=== PATIENT | female | born 1975 | race African-American/Black ===

== ENCOUNTER 2016-12-08 10:43 | Emergency (ER) | payer MEDICAID ==
--- NOTE | 2016-12-08 11:06 | ER Document Report ---
HPI - HPI Pain Level: 4 Notes: Patient is a 41-year-old female who presents to the ED complaining of left foot pain status post twist injury yesterday. Patient states that the pain is to the top of the foot and will radiate proximally. She has not been using any [id number] meds for her symptoms. the pain is described as an ache and occasional sharp pain. Patient states that weightbearing and ambulation make the pain worse. No other concerns or complaints. No other significant past medical history aside from hypertension. Denies any headache, fever, head injury, neck pain, chest pain, palpitations, syncope, cough, shortness of breath , wheeze, dyspnea, abdominal pain, nausea/vomiting/diarrhea, dysuria, hematuria , back pain, or rash. - ROS Notes: REVIEW OF SYSTEMS: CONSTITUTIONAL : Denies fever, chills, or sweats. Denies recent illness. EENT: Denies eye, ear, throat, or mouth pain or symptoms. Denies nasal or sinus congestion or discharge. Denies throat, tongue, or mouth swelling or difficulty swallowing. CARDIOVASCULAR: Denies chest pain. Denies palpitations or racing or irregular heart beat. Denies ankle edema. RESPIRATORY: Denies cough, cold, or chest congestion. Denies shortness of breath, difficulty breathing, or wheezing. GASTROINTESTINAL: Denies abdominal pain or distention. Denies nausea, vomiting , or diarrhea. Denies blood in vomitus, stools, or per rectum. Denies black, tarry stools. Denies constipation. GENITOURINARY: Denies difficulty urinating, painful urination, burning, frequency, blood in urine, or discharge. MUSCULOSKELETAL: see hpi SKIN: Denies rash, lesions or sores. NEUROLOGICAL: Denies confusion or altered mental status. Denies passing out or loss of consciousness. Denies dizziness or lightheadedness. Denies headache. Denies weakness or paralysis or loss of use of either side. Denies problems with gait or speech. Denies sensory loss, numbness, or tingling. ALL OTHER SYSTEMS REVIEWED AND NEGATIVE. Dictation was performed using [employer] voice recognition software - REPRODUCTIVE Reproductive: DENIES: : - DERM Skin Color: Normal Past Medical History - Social History Smoking Status: Current Every Day Smoker Family History: Reviewed & Not Pertinent - Past Medical History Cardiac Medical History: Reports: Hx Hypertension Denies: Hx Coronary Artery Disease Pulmonary Medical History: Reports: Hx Asthma, Hx Bronchitis Neurological Medical History: Reports: Hx Migraine Endocrine Medical History: Reports: Hx Hypothyroidism Renal/ Medical History: Reports: Hx Kidney Stones, Hx Ovarian Cysts, Hx Pelvic Inflammatory Disease. Denies: Hx Peritoneal Dialysis GI Medical History: Reports: Hx Gastroesophageal Reflux Disease, Hx Ulcer Musculoskeltal Medical History: Reports Hx Musculoskeletal Trauma Psychiatric Medical History: Reports: Hx Depression Traumatic Medical History: Reports: Hx Fractures Past Surgical History: Reports: Hx Abdominal Surgery - esophageal flap?, Hx Gynecologic Surgery - ovarian cyst, Hx Orthopedic Surgery - cyst on left ankle - Immunizations Immunizations up to date: Yes Hx Diphtheria, Pertussis, Tetanus Vaccination: Yes Hx Pneumococcal Vaccination: 02/16/10 Vertical Provider Document - CONSTITUTIONAL Agree With Documented VS: Yes Notes: PHYSICAL EXAMINATION: GENERAL: Well-appearing, well-nourished and in no acute distress. LUNGS: Breath sounds clear to auscultation bilaterally and equal. No wheezes rales or rhonchi. HEART: Regular rate and rhythm without murmurs, rubs, gallops. Musculoskeletal: Lt foot/ankle: FROM to passive/active. Strength 5+/5. + tenderness near the ATFL. + mild swelling to that area as well. No malleolar tenderness. N/V intact distal. Extremities: No cyanosis, clubbing, or edema b/l. Peripheral pulses 2+. Capillary refill less than 3 seconds. PSYCH: Normal mood, normal affect. SKIN: Warm, Dry, normal turgor, no rashes or lesions noted. - INFECTION CONTROL TRAVEL OUTSIDE OF THE [place] IN LAST 30 DAYS: No - RESPIRATORY O2 Sat by Pulse Oximetry: 97 Course - Re-evaluation Re-evalutation: 12/08/16 11:35 Patient is an afebrile, well-hydrated, 41-year-old female who presents to the ED with left foot pain, suspect sprain/strain. Vitals are stable. PE otherwise unremarkable for any neurovascular compromise. X-ray unremarkable for any acute fracture or dislocation. Patient to monitor symptoms closely and seek medical attention with any acute changes. An Raj wrap was applied today and crutches provided. Conservative measures for symptoms. Recheck with your PCM in 2-3 days. Consider consult with orthopedics and physical therapy for ongoing/worsening symptoms. Return to the ED with any worsening/concerning symptoms otherwise as reviewed in discharge. Patient is in agreement. - Vital Signs Vital signs: Temp Pulse Resp BP Pulse Ox 98.9 F 89 16 168/99 H 97 12/08/16 10:47 12/08/16 10:47 12/08/16 10:47 12/08/16 10:47 12/08/16 10:47 Discharge - Discharge Clinical Impression: Right foot pain Condition: Stable Disposition: HOME, SELF-CARE Instructions: Raj Wrap ([facility]), Exercises for the Foot Muscles ([facility]), Ice & Elevation ([facility]), Warm Packs ([facility]) Additional Instructions: Rest, Ice, Compression, Elevation Use raj wrap as directed Tylenol/ibuprofen as needed Light stretches daily Strength exercises as able Moist heat and massage may help F/u with your PCP in 2-3 days for a recheck Consider consult(s) with Orthopedics/physical therapy for ongoing/worsening symptoms Return to the ED with any worsening symptoms and/or development of fever, headache, chest pain, palpitations, syncope, shortness of breath, trouble breathing, abdominal pain, n/v/d, muscle weakness/paralysis, numbness/tingling, swelling, redness, or other worsening symptoms that are concerning to you. Prescriptions: Naproxen 500 mg PO BID PRN #30 tablet PRN Reason: Forms: Elevated Blood Pressure, Smoking Cessation Education Referrals: [facility] [Provider Group] - Follow up as needed
--- NOTE | 2016-12-08 11:28 | RADIOLOGY REPORT (SQ) ---
EXAM DESCRIPTION: FOOT LEFT COMPLETE COMPLETED DATE/TIME: 12/08/2016 11:14 am REASON FOR STUDY: left foot pain near ATFL COMPARISON: None. NUMBER OF VIEWS: Three views. TECHNIQUE: AP, lateral and oblique radiographic images acquired of the left foot. LIMITATIONS: None. FINDINGS: MINERALIZATION: Normal. BONES: No acute fracture or dislocation. No worrisome bone lesions. JOINTS: No effusions. SOFT TISSUES: No soft tissue swelling. No foreign body. OTHER: No other significant finding. IMPRESSION: NEGATIVE STUDY OF THE LEFT FOOT. NO RADIOGRAPHIC EVIDENCE OF ACUTE INJURY. TECHNICAL DOCUMENTATION: JOB ID: [id number] [employer]- All Rights Reserved
[2016-12-08 11:50] VITALS: BP 137/96
== END 2016-12-08 11:57 | disposition home or self-care (01) ==
LOC: ER 10:43
DX: M79.672 Pain in left foot (principal); X50.1XXA Overexertion from prolonged static or awkward postures, initial encounter; M79.671 Pain in right foot; J45.909 Unspecified asthma, uncomplicated; I10 Essential (primary) hypertension; F17.200 Nicotine dependence, unspecified, uncomplicated
CPT/HCPCS: 99283

== ENCOUNTER → 2017-03-09 | Outpatient (CLI) | payer MEDICAID | LOC: LAB 12:14 | PROVIDERS: ATTEND Nurse Practitioner Acute Care | DX: M54.5 Low back pain (principal); R30.0 Dysuria | CPT/HCPCS: 87086; 87210 ==

== ENCOUNTER → 2017-08-08 | Outpatient (CLI) | payer MEDICAID ==
--- NOTE | 2017-08-08 12:09 | RADIOLOGY REPORT (SQ) ---
EXAM DESCRIPTION: C SP 3 VWS OR LESS COMPLETED DATE/TIME: 08/08/2017 11:42 am REASON FOR STUDY: NECK PAIN ON LEFT SIDE M54.2 CERVICALGIA COMPARISON: Two view cervical spine 08/13/2012 NUMBER OF VIEWS: Two views TECHNIQUE: AP, lateral radiographic images acquired of the cervical spine. LIMITATIONS: None. FINDINGS: MINERALIZATION: Normal. ALIGNMENT: Anatomic. VERTEBRAE: Vertebral bodies of normal height. DISCS: No significant disc space narrowing. No large osteophytes. HARDWARE: None in the spine. SOFT TISSUES: No masses or calcifications. Lung apices clear. OTHER: No other significant finding. IMPRESSION: NO SIGNIFICANT RADIOGRAPHIC FINDING IN THE CERVICAL SPINE. TECHNICAL DOCUMENTATION: JOB ID: [id number] [employer]- All Rights Reserved Reading location - IP/workstation name: [email or web address]
== END ==
LOC: OD 11:27
PROVIDERS: ATTEND Family Medicine
DX: M54.2 Cervicalgia (principal)
CPT/HCPCS: 72040

== ENCOUNTER → 2017-09-06 | Outpatient (CLI) | payer MEDICAID ==
[2017-09-06 11:50] LABS: BACTERIA (WET MOUNT) 3+ BACTERIA SEEN; EPITHELIALS (WET MOUNT) 3+ EPITHELIALS SEEN; RBCS (WET MOUNT) FEW RBCS SEEN; T.VAGINALIS (WET MOUNT) NO TRICHOMONAS SEEN; WBCS (WET MOUNT) 2+ WBCS SEEN; YEAST (WET MOUNT) NO YEAST SEEN
== END ==
LOC: LAB 11:41
PROVIDERS: ATTEND Nurse Practitioner Acute Care
DX: N89.8 Other specified noninflammatory disorders of vagina (principal)
CPT/HCPCS: 87210

== ENCOUNTER → 2017-10-24 | Outpatient (CLI) | payer MEDICAID ==
--- NOTE | 2017-10-24 17:06 | WOMENS IMAGING REPORT ---
EXAM DESCRIPTION: BILAT SCREENING MAMMO W/CAD COMPLETED DATE/TIME: 10/24/2017 11:49 am REASON FOR STUDY: SCREENING MAMMO Z12.31 ENCNTR SCREEN MAMMOGRAM FOR MALIGNANT NEOPLASM OF ABBE COMPARISON: 2015 TECHNIQUE: Standard craniocaudal and mediolateral oblique views of each breast recorded using digita l acquisition. LIMITATIONS: None. FINDINGS: No masses, calcifications or architectural distortion. No areas of suspicion. Read with the assistance of CAD. .[facility] - R2 C[employer]ova Version 1.3 .[facility] - R2 Cenova Version 1.3 .[facility] - R2 Cenova Version 2.4 .[facility] - R2 Cenova Version 2.4 .[facility] - R2 [employer] Helper Version 9.2 IMPRESSION: NORMAL MAMMOGRAM. BIRADS 1. BREAST DENSITY: b. There are scattered areas of fibroglandular density. BIRAD: 1 NEGATIVE RECOMMENDATION: ROUTINE SCREENING COMMENT: The patient has been notified of the results by letter per SA requirements. Additional no tification policies are in place for contacting patient with suspicious or incomplete findings. Quality ID #225: The [employer] recommends an annual screening mammogram for women aged 40 years or over. This facility utilizes a reminder system to ensure that all patients receive reminder letters, and/or direct phone calls for appointments. This includes reminders for routine scr eening mammograms, diagnostic mammograms, or other Breast Imaging Interventions when appropriate. Th is patient will be placed in the appropriate reminder system. The [employer] (ACR) has developed recommendations for screening MRI of the breast s in certain patient populations, to be used in conjunction with mammography. Breast MRI surveillanc e may be appropriate for women with more than 20% lifetime risk of developing breast cancer as deter mined by genetic testing, significant family history of the disease, or history of mantle radiation f or Hodgkins Disease. ACR Practice Guidelines 2008. TECHNICAL DOCUMENTATION: FINDING NUMBER: (1) ASSESSMENT: (1) JOB ID: [id number] [employer]- All Rights Reserved Reading location - IP/workstation name: [email or web address]
== END ==
LOC: WI 11:07
PROVIDERS: ATTEND Family Medicine
DX: Z12.31 Encounter for screening mammogram for malignant neoplasm of breast (principal)
CPT/HCPCS: 77067

== ENCOUNTER → 2017-11-16 | Outpatient (CLI) | payer MEDICAID ==
[2017-11-16 14:34] LABS: T.VAGINALIS (WET MOUNT) NO TRICHOMONAS SEEN
[2017-11-16 14:35] LABS: BACTERIA (WET MOUNT) 4+ BACTERIA SEEN; EPITHELIALS (WET MOUNT) 3+ EPITHELIALS SEEN; WBCS (WET MOUNT) RARE WBCS SEEN; YEAST (WET MOUNT) NO YEAST SEEN
[2017-11-16 16:12] LABS: CHLAM PCR NOT DETECTED (NOT DETECT); GON PCR NOT DETECTED (NOT DETECT)
== END ==
LOC: LAB 14:10
PROVIDERS: ATTEND Nurse Practitioner Acute Care
DX: N89.8 Other specified noninflammatory disorders of vagina (principal); R10.9 Unspecified abdominal pain
CPT/HCPCS: 87086; 87210; 87491; 87591

== ENCOUNTER → 2018-01-17 | Outpatient (CLI) | payer MEDICAID ==
[2018-01-17 14:36] LABS: BACTERIA (WET MOUNT) 4+ BACTERIA SEEN; RBCS (WET MOUNT) FEW RBCS SEEN; T.VAGINALIS (WET MOUNT) NO TRICHOMONAS SEEN; WBCS (WET MOUNT) 3+ WBCS SEEN; YEAST (WET MOUNT) NO YEAST SEEN
[2018-01-17 14:37] LABS: EPITHELIALS (WET MOUNT) 4+ EPITHELIALS SEEN
[2018-01-17 15:50] LABS: CHLAM PCR NOT DETECTED (NOT DETECT); GON PCR NOT DETECTED (NOT DETECT)
== END ==
LOC: LAB 14:11
PROVIDERS: ATTEND Nurse Practitioner Acute Care
DX: N89.8 Other specified noninflammatory disorders of vagina (principal); R30.0 Dysuria
CPT/HCPCS: 87210; 87491; 87591

== ENCOUNTER → 2018-08-31 | Outpatient (CLI) | payer MEDICAID ==
[2018-08-31 14:20] LABS: BACTERIA (WET MOUNT) 4+ BACTERIA SEEN; EPITHELIALS (WET MOUNT) 4+ EPITHELIALS SEEN; RBCS (WET MOUNT) FEW RBCS SEEN; T.VAGINALIS (WET MOUNT) NO TRICHOMONAS SEEN; WBCS (WET MOUNT) 2+ WBCS SEEN; YEAST (WET MOUNT) NO YEAST SEEN
--- NOTE | 2018-08-31 14:27 | RADIOLOGY REPORT (SQ) ---
EXAM DESCRIPTION: HIP LEFT AP/LATERAL COMPLETED DATE/TIME: 08/31/2018 2:[address] abdomen and pelvis 10/27/2015 REASON FOR STUDY: LEFT HIP PAIN; CODE:01231, M25.552 N76.0 ACUTE VAGINITIS R30.0 DYSURIA R82.71 B ACTERIURIA COMPARISON: None. NUMBER OF VIEWS: Two views. TECHNIQUE: AP pelvis and additional frog-leg view of the left hip. LIMITATIONS: None. FINDINGS: MINERALIZATION: Normal. LEFT HIP: No fracture or dislocation. No worrisome bone lesions. RIGHT HIP: No fracture or dislocation. No worrisome bone lesions. PUBIS AND ISCHIUM: No fracture. PELVIS: No fracture. SACRUM: No fracture or dislocation. No worrisome bone lesions. LOWER LUMBAR SPINE: Bilateral lower lumbar facet arthropathy at L5-S1 SOFT TISSUES: No findings. OTHER: No other significant finding. IMPRESSION: NEGATIVE STUDY OF THE LEFT HIP AND PELVIS. NO RADIOGRAPHIC EVIDENCE OF ACUTE INJURY. TECHNICAL DOCUMENTATION: JOB ID: [id number] [employer]- All Rights Reserved Reading location - IP/workstation name: [email or web address]
== END ==
LOC: LAB 13:34
PROVIDERS: ATTEND Nurse Practitioner Family
DX: N76.0 Acute vaginitis (principal); R30.0 Dysuria; R82.71 Bacteriuria; M25.552 Pain in left hip
CPT/HCPCS: 87086; 87088; 87186; 87210

== ENCOUNTER → 2018-10-02 | Outpatient (CLI) | payer MEDICAID ==
[2018-10-02 15:03] LABS: BACTERIA (WET MOUNT) 4+ BACTERIA SEEN; EPITHELIALS (WET MOUNT) 4+ EPITHELIALS SEEN; RBCS (WET MOUNT) NO RBCS SEEN; T.VAGINALIS (WET MOUNT) NO TRICHOMONAS SEEN; WBCS (WET MOUNT) 2+ WBCS SEEN; YEAST (WET MOUNT) NO YEAST SEEN
== END ==
LOC: LAB 14:58
PROVIDERS: ATTEND Nurse Practitioner Acute Care
DX: N89.8 Other specified noninflammatory disorders of vagina (principal); R30.0 Dysuria
CPT/HCPCS: 87086; 87210

== ENCOUNTER → 2019-01-02 | Outpatient (CLI) | payer MEDICAID ==
--- NOTE | 2019-01-02 09:16 | WOMENS IMAGING REPORT ---
EXAM DESCRIPTION: BILAT SCREENING MAMMO W/CAD COMPLETED DATE/TIME: 01/02/2019 8:08 am REASON FOR STUDY: ROUTINE BILATERAL SCREENING;Z12.31 Z12.39 ENCOUNTER FOR OTH SCREENING FOR MALIGNA NT NEOPLASM OF COMPARISON: 10/24/2017 and 03/25/2015. EXAM PARAMETERS: Standard craniocaudal and mediolateral oblique views of each breast recorded using digital acquisition. Read with the assistance of CAD. .[facility] - [employer] Scaffolding Helper Version 9.2 LIMITATIONS: None. FINDINGS: No suspicious masses, suspicious calcifications or architectural distortion. No areas of c oncern. IMPRESSION: Negative MAMMOGRAM. BIRADS 1 BREAST DENSITY: c. The breasts are heterogeneously dense, which may obscure small masses. BIRAD: ASSESSMENT: 1 NEGATIVE RECOMMENDATION: ROUTINE SCREENING COMMENT: The patient has been notified of the results by letter per MQSA requirements. Additional no tification policies are in place for contacting patient with suspicious or incomplete findings. Quality ID #225: The [employer] recommends an annual screening mammogram for women aged 40 years or over. This facility utilizes a reminder system to ensure that all patients receive reminder letters, and/or direct phone calls for appointments. This includes reminders for routine scr eening mammograms, diagnostic mammograms, or other Breast Imaging Interventions when appropriate. Th is patient will be placed in the appropriate reminder system. TECHNICAL DOCUMENTATION: FINDING NUMBER: (1) ASSESSMENT: (1) JOB ID: [id number] [employer]- All Rights Reserved Reading location - IP/workstation name: [email or web address]
== END ==
LOC: WI 07:48
PROVIDERS: ATTEND Nurse Practitioner Family
DX: Z12.31 Encounter for screening mammogram for malignant neoplasm of breast (principal)
CPT/HCPCS: 77067

== ENCOUNTER 2019-02-27 11:29 | Day surgery (SDC) | payer MEDICAID ==
[2019-02-27] MEDS ORDERED: PROPOFOL INJ 200 MG/20 ML VIAL IV ONE (12:04)
[2019-02-27] MEDS ORDERED: LIDOCAINE 2% INJ-PF (20 MG/ML) 10 ML AMPUL ONE (12:04)
[2019-02-27] MEDS ORDERED: ONDANSETRON HCL INJ/PF 4 MG/2 ML SDV IV PRN (12:54)
[2019-02-27] MEDS ORDERED: MEPERIDINE HCL/PF INJ 25 MG/1 ML DISP.SYRIN IV PRN (12:54)
[2019-02-27] MEDS ORDERED: PROMETHAZINE HCL INJ 25 MG/1 ML VIAL IV PRN ×2 (12:54)
[2019-02-27] MEDS ORDERED: DIPHENHYDRAMINE HCL 50 MG/ML VIAL IV PRN (12:54)
[2019-02-27 13:11] LABS: POTASSIUM 3.8 mmol/L (3.6-5.0)
--- NOTE | 2019-02-27 13:39 | Operative Report ---
Operative Report DATE OF SURGERY: 02/27/19 Operative Report: The risks, benefits and alternatives of the procedure including the risks of bleeding, perforation requiring surgery have been explained to the patient in detail and informed consent has been obtained. Patient is placed in a left, lateral decubital position. Timeout was called. Propofol medication is administered. Rectal examination is done which did not reveal any masses, tears or fissures. Therapist with scope was inserted through the patient's rectum. Scope was then carefully advanced all the way to the cecum. The cecum was identified by the usual anatomical landmarks including the ileocecal valve as well as the appendiceal office. Photodocumentation is obtained. Scope was then sequentially pulled back via the various segments of the colon including the ascending colon, hepatic flexure, transverse colon, splenic flexure, descending colon finding to the rectosigmoid portions of the colon. Retroflexion maneuver is performed. PREOPERATIVE DIAGNOSIS: Change in bowel habits POSTOPERATIVE DIAGNOSIS: Right side inflammation status post biopsy OPERATION: Colonoscopy with biopsy SURGEON: LALO JOHN ANESTHESIA: LMAC TISSUE REMOVED OR ALTERED: As noted. COMPLICATIONS: None. ESTIMATED BLOOD LOSS: None. INTRAOPERATIVE FINDINGS: As noted above. PROCEDURE: Patient tolerated the procedure well. No immediate postprocedure complications are noted. Patient is discharged in good condition. Discharge date 02/27/2019. Discharge diet: Regular. Discharge activity: Regular. 2 to 3-week follow-up to discuss findings. Patient is instructed to call the office or proceed to the emergency room should there be any further problems or questions. Wait on the pathology.
[2019-02-27 15:07] VITALS: BP 121/76
== END 2019-02-27 14:40 | disposition home or self-care (01) ==
LOC: OROUT 11:29
PROVIDERS: ATTEND Internal Medicine Gastroenterology
DX: K52.9 Noninfective gastroenteritis and colitis, unspecified (principal); I10 Essential (primary) hypertension; K21.9 Gastro-esophageal reflux disease without esophagitis; E11.9 Type 2 diabetes mellitus without complications; J45.909 Unspecified asthma, uncomplicated; F17.210 Nicotine dependence, cigarettes, uncomplicated; Z88.8 Allergy status to other drugs, medicaments and biological substances
CPT/HCPCS: 45380; 36415; 82962; 82947; 84132; 88305 ×2; 00811; J2704; J3490; 811

== ENCOUNTER 2019-09-03 13:57 | Emergency (ER) | payer MEDICAID ==
--- NOTE | 2019-09-03 14:32 | ER Document Report ---
ED Medical Screen (RME) - General Stated Complaint: CHEST PAIN Time Seen by Provider: 09/03/19 14:25 Primary Care Provider: STEPHANI TURNER DO [Primary Care Provider] - Follow up as needed Mode of Arrival: Wheelchair Information source: Patient Notes: HPI; 44-year-old female with no previous medical problems presents emergency room complaining of sudden onset of chest pain that she states started when she was getting dressed. Radiates to her back. Denies any nausea, vomiting, no diaphoresis. Describes it as throbbing sensation midsternal. States she took 1 baby aspirin prior to arrival. No recent travel. No COVID-19 exposure. PE: Alert and oriented x3. Moderate distress noted. Lungs: Clear to auscultation without rales rhonchi wheezes. Heart: Regular rate rhythm without murmurs rubs or gallops. I have greeted and performed a rapid initial assessment of this patient. A comprehensive ED assessment and evaluation of the patient, analysis of test results and completion of the medical decision making process will be conducted by additional ED providers. I have specifically instructed the patient or family members with the patient to immediately return to any nursing staff should anything change in the patient's condition or with their chief complaint. TRAVEL OUTSIDE OF THE [place] IN LAST 30 DAYS: No - Related Data Allergies/Adverse Reactions: metoclopramide HCl [From Reglan] Adverse Reaction (Severe, Verified 09/03/19 14:25) Abnormal behavior Past Medical History - Past Medical History Cardiac Medical History: Reports: Hx Hypertension Denies: Hx Coronary Artery Disease, Hx Heart Attack Pulmonary Medical History: Reports: Hx Asthma, Hx Bronchitis Denies: Hx COPD, Hx Pneumonia Neurological Medical History: Reports: Hx Migraine. Denies: Hx Cerebrovascular Accident, Hx Seizures Endocrine Medical History: Reports: Hx Hypothyroidism Renal/ Medical History: Reports: Hx Kidney Stones, Hx Ovarian Cysts, Hx Pelvic Inflammatory Disease. Denies: Hx Peritoneal Dialysis GI Medical History: Reports: Hx Gastroesophageal Reflux Disease, Hx Ulcer Musculoskeltal Medical History: Denies Hx Arthritis, Reports Hx Musculoskeletal Trauma Psychiatric Medical History: Reports: Hx Depression Traumatic Medical History: Reports: Hx Fractures Past Surgical History: Reports: Hx Abdominal Surgery - esophageal flap?, Hx Gynecologic Surgery - ovarian cyst, Hx Orthopedic Surgery - cyst on left ankle - Immunizations Immunizations up to date: Yes Hx Diphtheria, Pertussis, Tetanus Vaccination: Yes Doctor's Discharge - Discharge Referrals: STEPHANI TURNER DO [Primary Care Provider] - Follow up as needed
[2019-09-03 14:58] LABS: ABSOLUTE BASOPHILS # (AUTO) 0.1 10^3/uL (0.0-0.2); ABSOLUTE EOSINOPHILS # (AUTO) 0.1 10^3/uL (0.0-0.6); ABSOLUTE LYMPHOCYTES (AUTO) 1.6 10^3/uL (0.5-4.7); ABSOLUTE MONOCYTES (AUTO) 0.5 10^3/uL (0.1-1.4); ABSOLUTE NEUT (AUTO) 4.4 10^3/uL (1.7-8.2); BASOPHILS % (AUTO) 1.1 % (0-2); EOSINOPHILS % (AUTO) 0.8 % (0-6); HEMATOCRIT 38.4 % (36.0-47.0); HEMOGLOBIN 13.3 g/dL (12.0-15.5); LYMPHOCYTES % (AUTO) 24.2 % (13-45); MEAN CORPUSCULAR HEMOGLOBIN 32.6 pg (27.0-33.4); MEAN CORPUSCULAR HGB CONC 34.6 g/dL (32.0-36.0); MEAN CORPUSCULAR VOLUME 94 fl (80-97); MONOCYTES % (AUTO) 7.4 % (3-13); PLATELET COUNT 308 10^3/uL (150-450); RED BLOOD COUNT 4.07 10^6/uL (3.72-5.28); RED CELL DISTRIBUTION WIDTH 12.5 % (11.5-14.0); SEGMENTED NEUTROPHILS % (AUTO) 66.5 % (42-78); TOTAL CELLS COUNTED % (AUTO) 100 %; WHITE BLOOD COUNT 6.7 10^3/uL (4.0-10.5)
[2019-09-03 15:11] LABS: APPEARANCE,URINE CLEAR; BILIRUBIN,URINE NEGATIVE (NEGATIVE); COLOR,URINE STRAW; GLUCOSE, URINE NEGATIVE (NEGATIVE); KETONES,URINE NEGATIVE (NEGATIVE); LEUKOCYTE ESTERASE,URINE NEGATIVE (NEGATIVE); NITRITE,URINE NEGATIVE (NEGATIVE); PROTEIN,URINE NEGATIVE (NEGATIVE); URINE SPECIFIC GRAVITY 1.011; UROBILINOGEN,URINE NEGATIVE mg/dL (<2.0)
[2019-09-03 15:14] LABS: ALBUMIN 4.7 g/dL (3.5-5.0); ALKALINE PHOSPHATASE 54 U/L (38-126); ANION GAP 8 (5-19); ASPARTATE AMINO TRANSFERASE 28 U/L (14-36); BILIRUBIN,TOTAL 0.6 mg/dL (0.2-1.3); BLOOD UREA NITROGEN 11 mg/dL (7-20); CALCIUM 9.9 mg/dL (8.4-10.2); CARBON DIOXIDE 25 mmol/L (22-30); CHLORIDE 103 mmol/L (98-107); CREATINE KINASE 154 U/L (30-135); GLUCOSE 122 mg/dL (75-110); POTASSIUM 4.1 mmol/L (3.6-5.0)
[2019-09-03 15:34] LABS: CREATINE KINASE MB 1.15 ng/mL (<4.55)
[2019-09-03 15:35] LABS: TROPONIN I < 0.012 ng/mL
--- NOTE | 2019-09-03 15:43 | RADIOLOGY REPORT (SQ) ---
EXAM DESCRIPTION: CHEST 2 VIEWS IMAGES COMPLETED DATE/TIME: 09/03/2019 2:53 pm REASON FOR STUDY: chest pain COMPARISON: AP chest 09/26/2011 EXAM PARAMETERS: NUMBER OF VIEWS: two views TECHNIQUE: Digital Frontal and Lateral radiographic views of the chest acquired. RADIATION DOSE: NA LIMITATIONS: none FINDINGS: LUNGS AND PLEURA: No opacities, masses or pneumothorax. No pleural effusion. MEDIASTINUM AND HILAR STRUCTURES: No masses or contour abnormalities. HEART AND VASCULAR STRUCTURES: Heart normal size. No evidence for failure. BONES: No acute findings. HARDWARE: None in the chest. OTHER: No other significant finding. IMPRESSION: NO ACUTE RADIOGRAPHIC FINDING IN THE CHEST. TECHNICAL DOCUMENTATION: JOB ID: [id number] [employer]- All Rights Reserved Reading location - IP/workstation name: [email or web address]
[2019-09-03] MEDS ORDERED: HYDROCODONE/ACETAMINOPHEN 5-325 MG TABLET PO ONE (16:13)
[2019-09-03] MEDS ORDERED: LIDOCAINE 2% VISCOUS SOLN 15 ML UDCUP PO ONE (18:25)
[2019-09-03] MEDS ORDERED: MAG HYDROX/AL HYDROX/SIMETH SUSP 30 ML UDCUP PO ONE (18:25)
--- NOTE | 2019-09-03 18:35 | EKG REPORT ---
SEVERITY:- ABNORMAL ECG - SINUS RHYTHM LEFT ATRIAL ABNORMALITY BORDERLINE T WAVE ABNORMALITIES : Confirmed by: Marshall Hannah MD 03-Sep-2019 18:34:28
--- NOTE | 2019-09-03 18:52 | ER Document Report ---
ED General - General Chief Complaint: Chest Pain Stated Complaint: CHEST PAIN Time Seen by Provider: 09/03/19 14:25 Primary Care Provider: STEPHANI TURNER DO [NO LOCAL MD] - Follow up as needed Mode of Arrival: Wheelchair Notes: 44-year-old female presents emergency department complaining of a sharp stabbing chest pain that radiates to her back that started when she bent over to put on her close, states when she stood up it was still there so she took an 81 mg aspirin and it did not help. States it is also located in her epigastrium. Patient states that it does wax and wane but has not gone away and stayed away completely. States that it hurts worse with a deep breath. Denies any nausea, vomiting or diarrhea. Denies any radiation of the pain to her arms or her neck, only to her back. Admits to history of hypertension, hyperlipidemia and diabetes. Mother had her first heart attack in her 50s and has since . TRAVEL OUTSIDE OF THE [place] IN LAST 30 DAYS: No - Related Data Allergies/Adverse Reactions: metoclopramide HCl [From Reglan] Adverse Reaction (Severe, Verified 09/03/19 18:32) Abnormal behavior Past Medical History - General Information source: Patient - Social History Smoking Status: Current Some Day Smoker Chew tobacco use (# tins/day): No Frequency of alcohol use: Rare Drug Abuse: Marijuana Family History: CAD - Mother with first heart attack around 53 or 54, in her 50s., Other - Father left when she was 1, medical history unknown. Patient has homicidal ideation: No - Past Medical History Cardiac Medical History: Reports: Hx Hypertension Denies: Hx Coronary Artery Disease, Hx Heart Attack Pulmonary Medical History: Reports: Hx Asthma, Hx Bronchitis Denies: Hx COPD, Hx Pneumonia Neurological Medical History: Reports: Hx Migraine. Denies: Hx Cerebrovascular Accident, Hx Seizures Endocrine Medical History: Reports: Hx Hypothyroidism Renal/ Medical History: Reports: Hx Kidney Stones, Hx Ovarian Cysts, Hx Pelvic Inflammatory Disease. Denies: Hx Peritoneal Dialysis GI Medical History: Reports: Hx Gastroesophageal Reflux Disease, Hx Ulcer Musculoskeletal Medical History: Denies Hx Arthritis, Reports Hx Musculoskeletal Trauma Psychiatric Medical History: Reports: Hx Depression Traumatic Medical History: Reports: Hx Fractures Past Surgical History: Reports: Hx Abdominal Surgery - esophageal flap?, Hx Gynecologic Surgery - ovarian cyst, Hx Orthopedic Surgery - cyst on left ankle - Immunizations Immunizations up to date: Yes Hx Diphtheria, Pertussis, Tetanus Vaccination: Yes Hx Pneumococcal Vaccination: 02/16/10 Review of Systems - Review of Systems Constitutional: No symptoms reported Cardiovascular: See HPI, Chest pain Respiratory: See HPI, Hurts to breathe Gastrointestinal: No symptoms reported -: Yes All other systems reviewed and negative Physical Exam - Vital signs Vitals: Temp Pulse Resp BP Pulse Ox 99.1 F 115 H 22 H 122/77 97 09/03/19 14:34 09/03/19 14:34 09/03/19 14:34 09/03/19 14:34 09/03/19 14:34 Interpretation: Tachycardic - Notes Notes: GENERAL: Alert, interacts well. No acute distress. HEAD: Normocephalic, atraumatic EYES: Pupils equal, round and reactive to light, extraocular movements intact. ENT: Oral mucosa moist, tongue midline. NECK: Full range of motion, supple, trachea midline. LUNGS: Clear to auscultation bilaterally, no wheezes, rales or rhonchi, no respiratory distress. HEART: Regular rate and rhythm, no murmurs, gallops, rubs. Tachycardia resolved by the time I examined her, heart rate was actually in the 60s. ABDOMEN: Soft, nontender, nondistended, bowel sounds present in all 4 quadrants. EXTREMITIES: Moves all 4 extremities spontaneously, no edema, radial and dorsalis pedis pulses 2/4 bilaterally. No cyanosis. NEUROLOGICAL: Alert and oriented x3, normal speech, biceps and patellar DTRs 2+ bilaterally. PSYCH: Normal mood, normal affect. SKIN: Warm, Dry, normal turgor, no rashes or lesions noted. Course - Re-evaluation Re-evalutation: 09/03/19 23:19 CBC unremarkable, CMP grossly unremarkable, lactic acid is normal, LFTs are n ormal, lipase is normal, test is negative, troponin is negative x2, urinalysis shows small blood but only 2 RBCs. Chest X-Ray 09/03/19 14:29 IMPRESSION: NO ACUTE RADIOGRAPHIC FINDING IN THE CHEST. Chest/Abdomen CTA 09/03/19 18:43 IMPRESSION: 1. No evidence for aortic dissection. No evidence for aortic aneurysm. 2. Incomplete opacification of the pulmonary arteries with IV contrast which limits the examination. 3. 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 Correlation with mesenteric Doppler ultrasound suggested. 4. Right renal cyst. Abdomen Ultrasound 09/03/19 20:13 IMPRESSION: Mild elevation of the superior mesenteric artery vessels however there is no significant change in the velocities before and after 2 ounces of Pedialyte. No significant change in the velocity of the celiac axis which is not significantly elevated. Overall there is no evidence of significant mesenteric vessel stenosis. copyright 2010 [employer]- All Rights Reserved Chest x-ray does not show pneumonia or pneumothorax to explain pleuritic chest pain, given the fact that her pain is sharp and stabbing and radiates to her back and she does have a history of hypertension, hyperlipidemia and diabetes I did order a CTA of the chest to look for dissection, this was negative but it did comment on narrowing of the proximal celiac artery, ultrasound was suggested and this was completed, there is no evidence of significant mesenteric vessel stenosis. This combined with a normal lactic acid makes me doubt that she has mesenteric ischemia. After this work-up was complete, patient now discloses that she had similar symptoms intermittently years ago and was discovered to have a hiatal hernia on EGD and was taken to surgery to fix it. Patient is not familiar with the term Angela fundoplication. Discussed with patient that she will need to follow-up with GI as an outpatient, they may want to perform an EGD, in the meantime I would suggest starting a PPI and Carafate, following a bland diet, eating small meals and she will be discharged home. - Vital Signs Vital signs: Temp Pulse Resp BP Pulse Ox 99 F 115 H 24 H 137/97 H 100 09/03/19 22:51 09/03/19 14:34 09/03/19 22:01 09/03/19 22:01 09/03/19 22:01 - Laboratory Result Diagrams: 09/03/19 14:40 09/03/19 14:40 Laboratory results interpreted by me: 09/03/19 09/03/19 09/03/19 14:10 14:40 20:35 Sodium 135.6 L Glucose 122 H Lactic Acid 0.6 L Creatine Kinase 154 H Urine Blood SMALL H - EKG Interpretation by Me Additional EKG results interpreted by me: 09/03/19 23:23 EKG shows sinus rhythm at a rate of 83, normal axis, normal intervals, no ST segment elevations or depressions, minimal T wave inversions in leads II and III, flattening in aVF, V5 and V6 per my interpretation. Discharge - Discharge Clinical Impression: Pleuritic chest pain, Epigastric abdominal pain Condition: Stable Disposition: HOME, SELF-CARE Additional Instructions: I do not know for certain what is causing your chest and abdominal pain. It is possible that this is coming from gastritis which is a breakdown of your stomach lining from overproduction of acid or your hiatal hernia may be returning because the repair is loosening up. You need to follow-up with GI as an outpatient, in the meantime you should take the Protonix that I have prescribed twice a day and take the Carafate as directed. Please make sure you take your regular medications 1 hour before the Carafate. Return for fever, worsening pain, blood in your stool or vomiting blood or any new or concerning symptoms. Prescriptions: Sucralfate [Carafate Susp 1 Gm/10 Ml Udcup] 1 gm PO ACHS #30 udc Pantoprazole Sodium [Protonix] 40 mg PO BID #60 tablet.dr Forms: Return to Work Referrals: STEPHANI TURNER DO [NO LOCAL MD] - Follow up as needed LALO JOHN MD [ACTIVE STAFF] - Follow up as needed
--- NOTE | 2019-09-03 19:44 | RADIOLOGY REPORT (SQ) ---
EXAM DESCRIPTION: CTA CHEST IMAGES COMPLETED DATE/TIME: 09/03/2019 7:10 pm REASON FOR STUDY: r/o dissection, sharp CP rad to back COMPARISON: None. TECHNIQUE: CT scan of the chest performed using helical scanning technique with dynamic intravenous contrast injection. Images reviewed with lung, soft tissue and bone windows. Reconstructed coronal and sagittal MPR images reviewed. Additional 3 dimensional post-processing performed to develop Maximal Intensity Projection images (SD P). All images stored on PACS. All CT scanners at this facility use dose modulation, iterative reconstruction, and/or weight based d osing when appropriate to reduce radiation dose to as low as reasonably achievable (ALARA). [facility]: Dose Right [facility]: CareDose [facility]: Dose Right [facility]: Teradose 4D [facility]: Cogniscan CONTRAST TYPE AND DOSE: 63 mL Omnipaque 350 Contrast bolus optimized for the pulmonary arteries. Not diagnostic for the aorta. RENAL FUNCTION: Creatinine -0.78 BUN =11 RADIATION DOSE: CT Rad equipment meets quality standard of care and radiation dose reduction techniq ues were employed. CTDIvol: 3.3 - 22.6 mGy. DLP: 920 mGy-cm. . LIMITATIONS: None. FINDINGS: LUNGS AND PLEURA: No masses, infiltrates, or pneumothorax. No pleural effusions or pleura l calcifications. AORTA AND GREAT VESSELS: No aneurysm. Contrast bolus not optimized for the aorta. HEART: No pericardial effusion. No significant coronary artery calcifications. PULMONARY ARTERIES: There is incomplete opacification of the pulmonary arteries with IV contrast whi ch limits the examination. As can best be determined, no evidence of filling defects. HILAR AND MEDIASTINAL STRUCTURES: No identified masses or abnormal nodes. HARDWARE: None in the chest. 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 Partially vi sualized right renal cyst. Limited exam. THYROID AND OTHER SOFT TISSUES: The visualized thyroid gland is heterogenous in appearance. BONES: No acute or significant finding. 3D MIPS: Confirm above findings. OTHER: No other significant finding. IMPRESSION: 1. No evidence for aortic dissection. No evidence for aortic aneurysm. 2. Incomplete opacification of the pulmonary arteries with IV contrast which limits the examination. 3. 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 Correlation with mesenteric Dopple r ultrasound suggested. 4. Right renal cyst. COMMENT: Quality ID # [id number]: Final reports with documentation of one or more dose reduction techniques (e.g., Automated exposure control, adjustment of the mA and/or kV according to patient size, use of iterative reconstruction technique) TECHNICAL DOCUMENTATION: JOB ID: [id number] 2010 [employer]- All Rights Reserved Reading location - IP/workstation name: [email or web address]
[2019-09-03] MEDS ORDERED: MORPHINE SULFATE 10 MG/ML INJ IV ONE (20:13)
--- NOTE | 2019-09-03 21:52 | RADIOLOGY REPORT (SQ) ---
EXAM DESCRIPTION: US ABDOMEN DOPPLER LIMITED COMPLETED DATE/TME: 09/03/2019 20:13 CLINICAL HISTORY: 44 years, Female, narrowing of celiac artery on CT, epigast pain COMPARISON: CT angiogram of the chest obtained earlier in the evening TECHNIQUE: Arterial duplex exam of the visceral vessels was performed pre and postprandial. Color and spectral Doppler analysis was performed. The meal consisted of two fluid ounces of Pedialyte. (This may be inadequate for assessment of a postprandial meal FINDINGS: Aorta: 81.9 cm/s Preprandial Celiac access decreased systolic velocity 129.3 cm/s, end-diastolic velocity 22.8 cm/s. Resistive index 0.82 SMA: Peak systolic velocity 285 cm/s, end-diastolic velocity 42.8 cm/s, RI 0.85 Hepatic artery: 123 cm/s/45.1 cm/s. RI 0.63 Postprandial: Celiac access: 119.4 cm/s/26.5 cm/s. RI 0.78 SMA: 265 cm/s/42.5 cm/s. RI 0.84 IMPRESSION: Mild elevation of the superior mesenteric artery vessels however there is no significant change in the velocities before and after 2 ounces of Pedialyte. No significant change in the velocity of the celiac axis which is not significantly elevated. Overall there is no evidence of significant mesenteric vessel stenosis. copyright 2010 [employer]- All Rights Reserved
[2019-09-03 23:37] VITALS: BP 148/91
== END 2019-09-03 23:36 | disposition home or self-care (01) ==
LOC: ER 13:57
DX: R07.81 Pleurodynia (principal); R10.13 Epigastric pain; R07.9 Chest pain, unspecified; I10 Essential (primary) hypertension; F17.200 Nicotine dependence, unspecified, uncomplicated; Z87.442 Personal history of urinary calculi
CPT/HCPCS: 93005; 99285; 96374; 36415; 82553; 82550; 83605; 83690; 84703; 85025; 80053; 81001; 84484; 71046; 76705; 93976; 71275; 93010; J3490 ×2; J2270

== ENCOUNTER 2019-09-20 17:49 | Emergency (ER) | payer MEDICAID ==
[2019-09-20 18:14] VITALS: BP 150/88
--- NOTE | 2019-09-20 19:35 | ER Document Report ---
ED General - General Chief Complaint: Cold Exposure Stated Complaint: COVID EXPOSURE Time Seen by Provider: 09/20/19 19:16 Primary Care Provider: JAGUAR COTA MD [Primary Care Provider] - Follow up as needed Notes: CHIEF COMPLAINT: COVID test HPI: 44-year-old female presenting to the emergency department for COVID test. States someone at work's daughter tested positive and the employer told everyone they needed to leave immediately to get a negative cover test before they were allowed to return to work. Patient denies any symptoms at this time, no cough or cold symptoms. No chest pain. No shortness of breath. No abdominal pain nausea vomiting. ROS: See HPI - all other systems were reviewed and are otherwise negative Constitutional: no fever Eyes: no drainage, no blurred vision ENT: no runny nose, no sore throat Cardiovascular: no chest pain Resp: no SOB, no cough GI: no vomiting, no diarrhea, no abdominal pain : no dysuria Integumentary: no rash Allergy: no hives Musculoskeletal: no extremity pain or swelling Neurological: no numbness/tingling, no weakness MEDICATIONS: I agree with the patient medications as charted by the RN. ALLERGIES: I agree with the allergies as charted by the RN. PAST MEDICAL HISTORY/PAST SURGICAL HISTORY: Reviewed and agree as charted by RN. SOCIAL HISTORY: Reviewed and agree as charted by RN. FAMILY HISTORY: No significant familial comorbid conditions directly related to patient complaint EXAM: Reviewed vital signs as charted by RN. CONSTITUTIONAL: Alert and oriented and responds appropriately to questions. Well-appearing; well-nourished HEAD: Normocephalic; atraumatic EYES: PERRL; Conjunctivae clear, sclerae non-icteric ENT: normal nose; no rhinorrhea; moist mucous membranes; pharynx without lesions noted, no uvula edema or deviation, no tonsillar hypertrophy, phonation normal NECK: Supple without meningismus; non-tender; no cervical lymphadenopathy, no masses CARD: RRR; no murmurs, no clicks, no rubs, no gallops; symmetric distal pulses RESP: Normal chest excursion without splinting or tachypnea; breath sounds clear and equal bilaterally; no wheezes, no rhonchi, no rales, pulse oximetry pulse oximetry 98% on room air not hypoxic ABD/GI: Normal bowel sounds; non-distended; soft, non-tender, no rebound, no guarding; no palpable organomegaly or masses. BACK: The back appears normal and is non-tender to palpation, there is no CVA tenderness EXT: Normal ROM in all joints; non-tender to palpation; no cyanosis, no effusions, no edema SKIN: Normal color for age and race; warm; dry; good turgor; no acute lesions noted NEURO: Moves all extremities equally; Motor and sensory function intact PSYCH: The patient's mood and manner are appropriate. Grooming and personal hygiene are appropriate. MDM: 44-year-old female essentially presenting for a COVID test because a coworker's daughter tested positive for COVID-19 and the employer requested all employees get a COVID test she was unable to get into the urgent care tonight. Patient is asymptomatic at this time we discussed this at length we will send a COVID test on the patient. Person under investigation quarantine at home follow-up pending test result TRAVEL OUTSIDE OF THE [place] IN LAST 30 DAYS: No - Related Data Allergies/Adverse Reactions: metoclopramide HCl [From Reglan] Adverse Reaction (Severe, Verified 09/03/19 18:32) Abnormal behavior Past Medical History - Social History Smoking Status: Never Smoker Family History: CAD - Mother with first heart attack around 53 or 54, in her 50s., Other - Father left when she was 1, medical history unknown. Patient has homicidal ideation: No - Past Medical History Cardiac Medical History: Reports: Hx Hypertension Denies: Hx Coronary Artery Disease, Hx Heart Attack Pulmonary Medical History: Reports: Hx Asthma, Hx Bronchitis Denies: Hx COPD, Hx Pneumonia Neurological Medical History: Reports: Hx Migraine. Denies: Hx Cerebrovascular Accident, Hx Seizures Endocrine Medical History: Reports: Hx Hypothyroidism Renal/ Medical History: Reports: Hx Kidney Stones, Hx Ovarian Cysts, Hx Pelvic Inflammatory Disease. Denies: Hx Peritoneal Dialysis GI Medical History: Reports: Hx Gastroesophageal Reflux Disease, Hx Ulcer Musculoskeletal Medical History: Denies Hx Arthritis, Reports Hx Musculoskeletal Trauma Psychiatric Medical History: Reports: Hx Depression Traumatic Medical History: Reports: Hx Fractures Past Surgical History: Reports: Hx Abdominal Surgery - esophageal flap?, Hx Gynecologic Surgery - ovarian cyst, Hx Orthopedic Surgery - cyst on left ankle - Immunizations Immunizations up to date: Yes Hx Diphtheria, Pertussis, Tetanus Vaccination: Yes Hx Pneumococcal Vaccination: 02/16/10 Physical Exam - Vital signs Vitals: Temp Pulse Resp BP Pulse Ox 98.8 F 81 18 150/88 H 98 09/20/19 18:09 09/20/19 18:09 09/20/19 18:09/20/19 18:09/20/19 18:09 Course - Vital Signs Vital signs: Temp Pulse Resp BP Pulse Ox 98.8 F 81 18 150/88 H 98 09/20/19 18:09 09/20/19 18:09 09/20/19 18:09 09/20/19 18:09 09/20/19 18:09 Discharge - Discharge Clinical Impression: Person under investigation for COVID-19 Condition: Stable Disposition: HOME, SELF-CARE Additional Instructions: You are considered a person under investigation at this time self quarantine at home until you have a negative cover test. If you develop any upper respiratory symptoms follow-up with your primary care provider return to the emergency department for reevaluation. Forms: Return to Work Referrals: JAGUAR COTA MD [Primary Care Provider] - Follow up as needed
== END 2019-09-20 19:44 | disposition home or self-care (01) ==
LOC: ER 17:49
DX: Z20.828 Contact with and (suspected) exposure to other viral communicable diseases (principal)
CPT/HCPCS: 99283; 87635; C9803

== ENCOUNTER 2020-01-04 21:56 | Emergency (ER) | payer MEDICAID ==
[2020-01-04] MEDS ORDERED: ACETAMINOPHEN 325 MG TABLET PO ONE (22:21)
[2020-01-04] MEDS ORDERED: IBUPROFEN 600 MG TABLET PO ONE (22:21)
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
[2020-01-04] MEDS ORDERED: HYDROCODONE/ACETAMINOPHEN 5-325 MG (6 TAB/ER DISP) PO PRN (23:52)
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
[2020-01-05 00:24] VITALS: BP 148/84
== END 2020-01-05 00:17 | disposition home or self-care (01) ==
LOC: ER 21:56
DX: S40.211A Abrasion of right shoulder, initial encounter (principal); M25.511 Pain in right shoulder; M79.645 Pain in left finger(s); M79.644 Pain in right finger(s); Y04.8XXA Assault by other bodily force, initial encounter; Y99.0 Civilian activity done for income or pay; F17.200 Nicotine dependence, unspecified, uncomplicated; I10 Essential (primary) hypertension
CPT/HCPCS: 99284; 73030; 73130; 29515; J3490 ×2